=== PATIENT | male | born 1990 | race Caucasian/White ===

== ENCOUNTER 2016-11-29 17:19 | Emergency (ER) | payer SELFPAY ==
[2016-11-29 18:10] VITALS: BP 141/75
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
== END 2016-11-29 18:50 | disposition home or self-care (01) ==
LOC: UCCORT 17:19
DX: H53.8 Other visual disturbances (principal)
CPT/HCPCS: 99201; G0463